=== PATIENT | female | born 1980 | race Two or more races ===

== ENCOUNTER → 2025-06-30 | Outpatient (CLI) | payer MEDICAID, SELFPAY ==
--- NOTE | 2025-06-30 09:45 | XR_ITS ---
Examination: Abdomen sonogram, complete Date and time of exam: June 30, 2025., 0943 hours INDICATIONS: Abdominal pain constipation 3 years, family history colon cancer Technique: Multiple real-time grayscale transabdominal sonographic images of the abdomen have been obtained. Findings: Normal gallbladder Normal common bile duct 0.5 cm Pancreatic head 2.5 cm Aorta not enlarged. Liver 14.1 cm fatty infiltration no focal liver lesions Normal hepatopetal portal venous flow Patent IVC Right kidney 10.6 cm renal cortex 1.7 cm Left kidney 11.0 cm renal cortex 1.9 cm Mild renal scar formation Spleen 10.3 cm IMPRESSION: Normal gallbladder Normal common bile duct
== END | disposition home or self-care (01) ==
PROVIDERS: PCP Family Medicine; Referring Provider Surgery; Visit Provider Surgery
DX: R10.9 Unspecified abdominal pain (principal); K59.00 Constipation, unspecified; Z80.0 Family history of malignant neoplasm of digestive organs
CPT/HCPCS: 76700